=== PATIENT | male | born 1945 | race Caucasian/White ===

== ENCOUNTER 2019-05-19 08:00 | Inpatient (IN) ==
[2019-05-19] MEDS ORDERED: Aspirin 81 MG TAB.CHEW PO ONE (08:03)
[2019-05-19] MEDS ORDERED: Isovue-370 500 ML BOTTLE IVP ONE ×2 (08:03→13:25)
[2019-05-19 08:51] LABS: Basophils % 0.2 %; Eosinophils # 0.1 K/mcL (0.0-0.6); Eosinophils % 1.8 %; Hematocrit 37.4 % (37.5-50.1); Hemoglobin 11.9 g/dL (12.9-16.9); Immature Granulocytes % 0.5 % (0-4); Lymphocytes # 1.2 K/mcL (0.6-4.6); Lymphocytes % 19.2 %; Mean Corpuscular HGB Conc 31.8 g/dL (31.6-35.5); Mean Corpuscular Hemoglobin 32.1 pg (28.0-33.3); Mean Corpuscular Volume 100.8 fL (83.0-100.0); Mean Platelet Volume 11.1 fL (9.4-12.4); Monocytes # 0.4 K/mcL (0.0-1.3); Monocytes % 6.9 %; Neutrophils # 4.3 K/mcL (1.6-8.9); Platelet Count 179 K/mcL (140-400); Red Blood Count 3.71 M/mcL (4.19-5.50); Segmented Neutrophils % 71.4 %; White Blood Count 6.1 K/mcL (4.3-11.1)
[2019-05-19] MEDS ORDERED: 0.9 % Sodium Chloride 1,000 ML IVC ONE (08:53)
[2019-05-19] MEDS ORDERED: *HR* HYDROmorphone (PF) 1 MG/ML SYRINGE IVP ONE (08:53)
[2019-05-19 09:07] LABS: Albumin 3.2 g/dL (3.5-5.7); Albumin/Globulin Ratio 0.9 (1.1-2.2); Bilirubin,Direct 0.2 mg/dL (0.0-0.2); Bilirubin,Indirect 0.6 mg/dL (0.0-1.0); Bilirubin,Total 0.8 mg/dL (0.3-1.0); Globulin 3.4 g/dL (2.4-3.5); Total Protein 6.6 g/dL (6.4-8.9)
[2019-05-19 09:10] LABS: BUN/Creatinine Ratio 18 (6-26); Blood Urea Nitrogen 14 mg/dL (8-23); Calcium 8.9 mg/dL (8.6-10.3); Carbon Dioxide 28 mEq/L (23-29); Chloride 105 mEq/L (98-107); Glucose 153 mg/dL (70-105); Osmolality,Calculated 292 (280-300); Potassium 3.7 mEq/L (3.5-5.1); Sodium 139 mEq/L (136-145); Troponin I < 0.03 ng/mL (< 0.04); eGFR For African Americans > 60 (> 60); eGFR For Non-African Americans > 60 (> 60)
[2019-05-19] MEDS ORDERED: *HR* FentaNYL (PF) 100 MCG/2 ML VIAL IVP ONE (12:38)
[2019-05-19] MEDS ORDERED: Naloxone 0.4 MG/ML INJ IVP PRN (14:33)
[2019-05-19] MEDS ORDERED: *HR* OxyCODONE Immed Rel 5 MG TABLET PO PRN (14:33)
[2019-05-19] MEDS ORDERED: Ondansetron ODT 4 MG TAB.RAPDIS SL PRN (14:33)
[2019-05-19] MEDS ORDERED: Artificial Tears SOLN 15 ML BOTTLE LEFT EYE PRN (15:27)
[2019-05-19] MEDS ORDERED: VISINE TEARS DROPS 15 ML 1 DROP BOTTLE LEFT EYE PRN (17:30)
[2019-05-19] MEDS: Apixaban 2.5 MG TABLET PO SCH (20:41)
[2019-05-19] MEDS: Baclofen 10 MG TABLET PO SCH (20:41)
[2019-05-20 00:43] LABS: Basophils % 0.2 %; Eosinophils # 0.1 K/mcL (0.0-0.6); Hematocrit 35.5 % (37.5-50.1); Hemoglobin 11.6 g/dL (12.9-16.9); Immature Granulocytes % 0.3 % (0-4); Lymphocytes # 1.3 K/mcL (0.6-4.6); Lymphocytes % 19.3 %; Mean Corpuscular HGB Conc 32.7 g/dL (31.6-35.5); Mean Corpuscular Hemoglobin 32.2 pg (28.0-33.3); Mean Corpuscular Volume 98.6 fL (83.0-100.0); Monocytes # 0.5 K/mcL (0.0-1.3); Monocytes % 7.4 %; Neutrophils # 4.6 K/mcL (1.6-8.9); Platelet Count 173 K/mcL (140-400); Red Cell Distribution Width 15.1 % (11.5-14.5); Segmented Neutrophils % 70.8 %; White Blood Count 6.5 K/mcL (4.3-11.1)
[2019-05-20 00:55] LABS: BUN/Creatinine Ratio 18 (6-26); Blood Urea Nitrogen 13 mg/dL (8-23); Calcium 8.8 mg/dL (8.6-10.3); Carbon Dioxide 31 mEq/L (23-29); Chloride 105 mEq/L (98-107); Glucose 106 mg/dL (70-105); Magnesium 1.6 mg/dL (1.6-2.6); Osmolality,Calculated 291 (280-300); Phosphorous 2.7 mg/dL (2.7-4.5); Potassium 3.8 mEq/L (3.5-5.1); Sodium 140 mEq/L (136-145); eGFR For African Americans > 60 (> 60); eGFR For Non-African Americans > 60 (> 60)
[2019-05-20] MEDS: Acetaminophen 325 MG TABLET PO PRN ×2 (04:19→12:49)
[2019-05-20] MEDS: Aspirin 81 MG TAB.CHEW PO SCH (07:41)
[2019-05-20] MEDS: Apixaban 2.5 MG TABLET PO SCH ×2 (07:41→21:09)
[2019-05-20] MEDS: Baclofen 10 MG TABLET PO SCH ×3 (07:41→21:09)
[2019-05-20 12:29] LABS: Bilirubin,Urine Small (Negative); Blood,Urine Negative (Negative); Clarity,Urine Clear (Clear); Color,Urine Yellow (Yellow); Glucose,Urine (UA) Normal (Normal); Ketones,Urine Negative (Negative); Leukocyte Esterase,Urine Negative (Negative); Nitrite,Urine Negative (Negative); Protein,Urine Negative (Neg-Trace); Specific Gravity,Urine > 1.030 (1.010-1.025); Urobilinogen,Urine Normal (Normal)
[2019-05-21 06:13] LABS: Hematocrit 36.9 % (37.5-50.1); Hemoglobin 11.5 g/dL (12.9-16.9); Mean Corpuscular HGB Conc 31.2 g/dL (31.6-35.5); Mean Corpuscular Hemoglobin 32.2 pg (28.0-33.3); Mean Corpuscular Volume 103.4 fL (83.0-100.0); Mean Platelet Volume 11.3 fL (9.4-12.4); Platelet Count 163 K/mcL (140-400); Red Blood Count 3.57 M/mcL (4.19-5.50); Red Cell Distribution Width 15.1 % (11.5-14.5); White Blood Count 6.4 K/mcL (4.3-11.1)
[2019-05-21 06:35] LABS: BUN/Creatinine Ratio 23 (6-26); Blood Urea Nitrogen 19 mg/dL (8-23); Calcium 8.3 mg/dL (8.6-10.3); Carbon Dioxide 30 mEq/L (23-29); Chloride 102 mEq/L (98-107); Glucose 107 mg/dL (70-105); Osmolality,Calculated 295 (280-300); Potassium 4.2 mEq/L (3.5-5.1); Sodium 141 mEq/L (136-145); eGFR For African Americans > 60 (> 60); eGFR For Non-African Americans > 60 (> 60)
[2019-05-21] MEDS: Apixaban 2.5 MG TABLET PO SCH (09:27)
[2019-05-21] MEDS: Aspirin 81 MG TAB.CHEW PO SCH (09:27)
[2019-05-21] MEDS: Baclofen 10 MG TABLET PO SCH (09:27)
[2019-05-21 12:50] VITALS: BP 101/63
== END 2019-05-21 16:19 | DRG 313 ==
LOC: EMEROOARM 08:00 → 3BNU 08:00 → SUATTDRO 14:19 → 3BNU 15:26 → SUATTDRO 05-20 16:32
PROVIDERS: ADMIT Internal Medicine; ATTEND Internal Medicine

== ENCOUNTER 2020-03-29 09:11 | Inpatient (IN) ==
[2020-03-29 09:57] LABS: Basophils % 0.1 %; Hemoglobin 11.5 g/dL (12.9-16.9); Mean Corpuscular Volume 102.2 fL (83.0-100.0); Red Cell Distribution Width 14.5 % (11.5-14.5)
[2020-03-29 09:59] LABS: Hematocrit 37.2 % (37.5-50.1); Immature Granulocytes % 0.6 % (0-4); Immature Platelets 8.7 % (1.1-6.1); Lymphocytes # 0.3 K/mcL (0.6-4.6); Lymphocytes % 3.2 %; Mean Corpuscular HGB Conc 30.9 g/dL (31.6-35.5); Mean Corpuscular Hemoglobin 31.6 pg (28.0-33.3); Mean Platelet Volume 11.6 fL (9.4-12.4); Monocytes # 0.2 K/mcL (0.0-1.3); Monocytes % 2.4 %; Neutrophils # 8.3 K/mcL (1.6-8.9); Nucleated Red Blood Cells 0.2 /100 WBC (0); Platelet Count 120 K/mcL (140-400); Red Blood Count 3.64 M/mcL (4.19-5.50); Segmented Neutrophils % 93.7 %; White Blood Count 8.9 K/mcL (4.3-11.1)
[2020-03-29 10:02] LABS: INR 1.8; Prothrombin Time 20.7 Seconds (9.4-12.1)
[2020-03-29 10:05] LABS: Activated Partial Thrombo Time 35.1 Seconds (26.0-36.0)
[2020-03-29] MEDS ORDERED: 0.9 % Sodium Chloride 1,000 ML ONE (10:22)
[2020-03-29 10:24] LABS: Alanine Aminotransferase 24 Units/L (7-52); Albumin/Globulin Ratio 0.8 (1.1-2.2); Alkaline Phosphatase 79 Units/L (34-104); Aspartate Amino Transferase 41 Units/L (13-39); BUN/Creatinine Ratio 18 (6-26); Bilirubin,Direct 0.5 mg/dL (0.0-0.2); Bilirubin,Indirect 0.6 mg/dL (0.0-1.0); Bilirubin,Total 1.1 mg/dL (0.3-1.0); Blood Urea Nitrogen 19 mg/dL (8-23); C-Reactive Protein > 300 mg/L (Less than 10); Calcium 8.3 mg/dL (8.6-10.3); Carbon Dioxide 35 mEq/L (23-29); Chloride 96 mEq/L (98-107); Globulin 3.8 g/dL (2.4-3.5); Glucose 133 mg/dL (70-105); Lactate Dehydrogenase 262 Units/L (140-271); Magnesium 1.8 mg/dL (1.6-2.6); Osmolality,Calculated 292 (280-300); Phosphorous 2.8 mg/dL (2.7-4.5); Potassium 3.7 mEq/L (3.5-5.1); Sodium 139 mEq/L (136-145); Total Protein 6.8 g/dL (6.4-8.9); Troponin I 0.09 ng/mL (< 0.04); eGFR For African Americans > 60 (> 60); eGFR For Non-African Americans > 60 (> 60)
[2020-03-29 10:40] LABS: Anisocytosis 1+ (Not Present)
[2020-03-29 10:41] LABS: Ferritin 730 ng/mL (20-250); Platelet Estimate Normal (Normal)
[2020-03-29 10:49] LABS: Toxic Granulation Present (Not Present)
[2020-03-29] MEDS ORDERED: Naloxone 0.4 MG/ML INJ IVP PRN (11:45)
[2020-03-29] MEDS ORDERED: Dextrose Gel 15 GM/37.5 ML TUBE PO PRN ×2 (11:50)
[2020-03-29] MEDS ORDERED: *HR* Dextrose 50 % in Water (Vial) 50 ML VIAL IVP PRN (11:50)
[2020-03-29] MEDS ORDERED: D5% in Water 1,000 ML IVC PRN (11:50)
[2020-03-29] MEDS ORDERED: Dexamethasone 4 MG/ML VIAL IVP SCH (12:00)
[2020-03-29] MEDS ORDERED: 0.9 % Sodium Chloride 1,000 ML IVC SCH (12:00)
[2020-03-29] MEDS ORDERED: Albuterol 2.5 MG/3 ML NEBULIZER IH SCH (12:00)
[2020-03-29] MEDS: Vancomycin 1,500 MG/265 ML IV.SOLN IVPB SCH ×2 (12:43→23:30)
[2020-03-29] MEDS: Piperacillin/Tazobactam 3.375 GM in 0.9 % Sodium Chloride Mini Bag 100 ML IVPB SCH ×2 (12:44→20:04)
[2020-03-29 13:41] LABS: Bilirubin,Urine Negative (Negative); Blood,Urine Negative (Negative); Clarity,Urine Clear (Clear); Color,Urine Yellow (Yellow); Glucose,Urine (UA) Normal (Normal); Granular Casts,Urine Few per lpf (None Seen); Hyaline Casts,Urine Many per lpf (None Seen); Ketones,Urine Trace mg/dL (Negative); Leukocyte Esterase,Urine Negative (Negative); Mucus,Urine Few per lpf (None-Few); Nitrite,Urine Negative (Negative); PH,Urine 5.5 pH Units (5.0-8.0); Protein,Urine 50 mg/dL (Neg-Trace); RBC,Urine 0-3 per hpf (0-3); Renal Epithelial Cells,Urine Few per hpf (None-Few); Specific Gravity,Urine 1.018 (1.010-1.025); Squamous Epithelial Cell,Urine Few per hpf (None-Few); Transitional Epi Cells,Urine Few per hpf (None-Few); Urobilinogen,Urine Normal (Normal); WBC,Urine 0-3 per hpf (0-3)
[2020-03-29 14:26] LABS: ABG Base Excess 9 mEq/L (-2 to 3); ABG HCO3 34 mEq/L (21-27); ABG Oxygen Saturation 86 % (95-98); ABG PCO2 49 mmHg (35-45); ABG PH 7.45 pH Units (7.32-7.45); ABG PO2 49 mmHg (85-104); ABG TCO2 36 mEq/L (20-26); Blood Gas Modality avaps
[2020-03-29] MEDS: FentaNYL (PF) 1,000 MCG/100 ML IV.SOLN IVC SCH (15:50)
[2020-03-29] MEDS: Insulin LISPRO 300 UNITS/3 ML VIAL SQ SCH ×3 (16:00→23:33)
[2020-03-29] MEDS ORDERED: Artificial Tears SOLN 15 ML BOTTLE BOTH EYES PRN ×2 (16:24→20:19)
[2020-03-29] MEDS: Midazolam HCl 50 MG/100 ML IV.SOLN IVC SCH (16:39)
[2020-03-29] MEDS: Cisatracurium 200 MG in 0.9 % Sodium Chloride 180 ML IVC SCH (16:39)
[2020-03-29 17:01] LABS: ABG Base Excess 7 mEq/L (-2 to 3); ABG HCO3 30 mEq/L (21-27); ABG Oxygen Saturation 84 % (95-98); ABG PCO2 37 mmHg (35-45); ABG PH 7.52 pH Units (7.32-7.45); ABG PO2 44 mmHg (85-104); ABG TCO2 31 mEq/L (20-26); Blood Gas Modality AF; Blood Gas VT 600 cc
[2020-03-29] MEDS ORDERED: *HR* Midazolam HCl 5 MG/5 ML VIAL IVP ONE (18:00)
[2020-03-29] MEDS ORDERED: *HR* Succinylcholine 200 MG/10 ML VIAL IVP ONE (18:00)
[2020-03-29] MEDS ORDERED: *HR* Midazolam HCl 2 MG/2 ML VIAL IVP ONE (18:00)
[2020-03-29] MEDS ORDERED: *HR* Rocuronium Bromide 100 MG/10 ML VIAL IVP ONE (18:00)
[2020-03-29] MEDS ORDERED: *HR* Propofol 200 MG/20 ML VIAL IVP ONE (18:00)
[2020-03-29] MEDS: Pantoprazole 40 MG VIAL IVP SCH (18:38)
[2020-03-29] MEDS: Dexamethasone 4 MG/ML VIAL IVP SCH (18:39)
[2020-03-29] MEDS ORDERED: Norepinephrine 4 MG/254 ML IV.SOLN IVC SCH (19:00)
[2020-03-29] MEDS: Budesonide/Formoterol 160/4.5 1 PUFF INH IH SCH (19:57)
[2020-03-29] MEDS: Artificial Tears SOLN 15 ML BOTTLE BOTH EYES SCH ×2 (20:04→23:31)
[2020-03-29 20:11] LABS: ABG Base Excess 7 mEq/L (-2 to 3); ABG HCO3 29 mEq/L (21-27); ABG Oxygen Saturation 96 % (95-98); ABG PCO2 35 mmHg (35-45); ABG PH 7.54 pH Units (7.32-7.45); ABG PO2 73 mmHg (85-104); ABG TCO2 31 mEq/L (20-26); Blood Gas Modality ASSIST CONTROL; Blood Gas VT 500 cc
[2020-03-29] MEDS: Chlorhexidine Rinse 15 ML MOUTHWASH MM SCH (20:37)
[2020-03-29] MEDS: *HR* Heparin 5,000 UNIT/ML VIAL SQ SCH (20:39)
[2020-03-29] MEDS ORDERED: Chlorhexidine Rinse 15 ML MOUTHWASH MM SCH (21:00)
[2020-03-29 22:19] LABS: ABG Base Excess 4 mEq/L (-2 to 3); ABG HCO3 29 mEq/L (21-27); ABG Oxygen Saturation 95 % (95-98); ABG PCO2 45 mmHg (35-45); ABG PH 7.42 pH Units (7.32-7.45); ABG PO2 75 mmHg (85-104); ABG TCO2 31 mEq/L (20-26); Blood Gas Modality ASSIST CONTROL; Blood Gas VT 450 cc
[2020-03-29] MEDS ORDERED: Vasopressin 40 UNIT in D5% in Water 100 ML IVC SCH (22:45)
[2020-03-29] MEDS: Norepinephrine 8 MG in 0.9 % Sodium Chloride 250 ML IVC SCH (23:01)
[2020-03-30] MEDS ORDERED: 0.9 % Sodium Chloride 250 ML ONE (00:18)
[2020-03-30] MEDS: FentaNYL (PF) 1,000 MCG/100 ML IV.SOLN IVC SCH ×2 (02:13→12:43)
[2020-03-30] MEDS: Cisatracurium 200 MG in 0.9 % Sodium Chloride 180 ML IVC SCH ×2 (02:13→14:20)
[2020-03-30 03:38] LABS: Hematocrit 33.8 % (37.5-50.1); Hemoglobin 10.9 g/dL (12.9-16.9); Lymphocytes # 0.1 K/mcL (0.6-4.6); Mean Corpuscular HGB Conc 32.2 g/dL (31.6-35.5); Mean Corpuscular Hemoglobin 31.8 pg (28.0-33.3); Mean Corpuscular Volume 98.5 fL (83.0-100.0); Nucleated Red Blood Cells 0.3 /100 WBC (0); Platelet Count 101 K/mcL (140-400); Red Blood Count 3.43 M/mcL (4.19-5.50); Red Cell Distribution Width 14.7 % (11.5-14.5); White Blood Count 6.6 K/mcL (4.3-11.1)
[2020-03-30 03:38] LABS: ABG Base Excess 2 mEq/L (-2 to 3); ABG HCO3 27 mEq/L (21-27); ABG Oxygen Saturation 93 % (95-98); ABG PCO2 45 mmHg (35-45); ABG PH 7.39 pH Units (7.32-7.45); ABG PO2 68 mmHg (85-104); ABG TCO2 28 mEq/L (20-26); Blood Gas Modality ASSIST CONTROL; Blood Gas VT 450 cc
[2020-03-30 04:02] LABS: Calcium 7.8 mg/dL (8.6-10.3); Magnesium 1.6 mg/dL (1.6-2.6); Phosphorous 2.4 mg/dL (2.7-4.5); Potassium 3.4 mEq/L (3.5-5.1)
[2020-03-30 04:09] LABS: Troponin I 0.21 ng/mL (< 0.04)
[2020-03-30 04:25] LABS: Monocytes # 0.5 K/mcL (0.0-1.3); Neutrophils # 5.9 K/mcL (1.6-8.9)
[2020-03-30 04:26] LABS: Platelet Estimate Slight Decrease (Normal); Toxic Granulation Present (Not Present)
[2020-03-30] MEDS: *HR* Heparin 5,000 UNIT/ML VIAL SQ SCH (05:00)
[2020-03-30] MEDS: Norepinephrine 8 MG in 0.9 % Sodium Chloride 250 ML IVC SCH ×2 (05:00→11:30)
[2020-03-30] MEDS: Insulin LISPRO 300 UNITS/3 ML VIAL SQ SCH ×2 (05:01→12:20)
[2020-03-30] MEDS ORDERED: *HR* Heparin 5,000 UNIT/ML VIAL IVP PRN ×2 (05:08)
[2020-03-30] MEDS ORDERED: *HR* Heparin 5,000 UNIT/ML VIAL IVP ONE (05:08)
[2020-03-30] MEDS ORDERED: Heparin 25,000UNIT/250ML 1/2NS 25,000 UNIT/250 ML IV.SOLN IVC SCH ×2 (05:15→06:15)
[2020-03-30] MEDS: Artificial Tears SOLN 15 ML BOTTLE BOTH EYES SCH ×3 (05:16→11:16)
[2020-03-30 05:51] LABS: Hemoglobin 10.9 g/dL (12.9-16.9); INR 1.9; Immature Platelets 14.3 % (1.1-6.1); Mean Corpuscular HGB Conc 32.1 g/dL (31.6-35.5); Mean Corpuscular Hemoglobin 31.5 pg (28.0-33.3); Mean Corpuscular Volume 98.3 fL (83.0-100.0); Prothrombin Time 21.7 Seconds (9.4-12.1); Red Blood Count 3.46 M/mcL (4.19-5.50); Red Cell Distribution Width 14.6 % (11.5-14.5); White Blood Count 8.6 K/mcL (4.3-11.1)
[2020-03-30 05:54] LABS: Activated Partial Thrombo Time 34.4 Seconds (26.0-36.0); Heparin anti-factor XA UFH 1.02 IU/mL (0.30-0.70)
[2020-03-30 07:36] LABS: Acinetobacter baumannii by PCR Not Detected (Not Detect); Candida albicans by PCR Not Detected (Not Detect); Candida glabrata by PCR Not Detected (Not Detect); Candida krusei by PCR Not Detected (Not Detect); Candida parapsilosis by PCR Not Detected (Not Detect); Candida tropicalis by PCR Not Detected (Not Detect); Enterobacter cloacae Cmplx PCR Not Detected (Not Detect); Enterobacteriaceae by PCR Not Detected (Not Detect); Enterococcus by PCR Not Detected (Not Detect); Escherichia coli by PCR Not Detected (Not Detect); Klebsiella oxytoca by PCR Not Detected (Not Detect); Klebsiella pneumoniae by PCR Not Detected (Not Detect); Proteus by PCR Not Detected (Not Detect); Pseudomonas aeruginosa by PCR Not Detected (Not Detect); Serratia marcescens by PCR Not Detected (Not Detect); Staphylococcus aureus by PCR Not Detected (Not Detect); Staphylococcus by PCR DETECTED (Not Detect); Streptococcus agalactiae(B)PCR Not Detected (Not Detect); Streptococcus by PCR Not Detected (Not Detect); Streptococcus pneumoniae PCR Not Detected (Not Detect); Streptococcus pyogenes (A) PCR Not Detected (Not Detect); blaKPC Carbapenem-Resist Gene Not Detected (Not Detect); mecA Methicillin-Resist Gene DETECTED (Not Detect); vanA/B Vancomycin-Resist Genes Not Detected (Not Detect)
[2020-03-30] MEDS: Dexamethasone 4 MG/ML VIAL IVP SCH (07:48)
[2020-03-30] MEDS: Chlorhexidine Rinse 15 ML MOUTHWASH MM SCH (07:48)
[2020-03-30] MEDS: Pantoprazole 40 MG VIAL IVP SCH (07:48)
[2020-03-30] MEDS: Budesonide/Formoterol 160/4.5 1 PUFF INH IH SCH (07:53)
[2020-03-30] MEDS ORDERED: Piperacillin/Tazobactam 3.375 GM in 0.9 % Sodium Chloride Mini Bag 100 ML IVPB SCH (08:00)
[2020-03-30 08:36] LABS: Albumin 2.8 g/dL (3.5-5.7); Albumin/Globulin Ratio 0.8 (1.1-2.2); Bilirubin,Direct 0.8 mg/dL (0.0-0.2); Bilirubin,Indirect 0.6 mg/dL (0.0-1.0); Bilirubin,Total 1.4 mg/dL (0.3-1.0); Globulin 3.4 g/dL (2.4-3.5); Total Protein 6.2 g/dL (6.4-8.9)
[2020-03-30] MEDS ORDERED: Potassium Phosphate 44 MEQ in 0.9 % Sodium Chloride 250 ML IVPB PRN (09:36)
[2020-03-30] MEDS ORDERED: Calcium Gluconate 1gm/50mL 1 GM/50 ML BAG IVPB PRN (09:36)
[2020-03-30] MEDS ORDERED: Potassium Chloride 40 MEQ/200 ML BAG IVPB PRN (09:36)
[2020-03-30] MEDS: Midazolam HCl 50 MG/100 ML IV.SOLN IVC SCH (10:06)
[2020-03-30 11:53] LABS: ABG Base Excess 0 mEq/L (-2 to 3); ABG HCO3 26 mEq/L (21-27); ABG Oxygen Saturation 93 % (95-98); ABG PCO2 46 mmHg (35-45); ABG PH 7.35 pH Units (7.32-7.45); ABG PO2 72 mmHg (85-104); ABG TCO2 27 mEq/L (20-26); Blood Gas Modality ASSIST CONTROL
[2020-03-30 11:57] LABS: VBG Ionized Calcium 0.96 mmol/L (1.15-1.35)
[2020-03-30] MEDS: Phenylephrine 10 MG in 0.9 % Sodium Chloride 250 ML IVC SCH ×2 (12:38→14:49)
[2020-03-30] MEDS ORDERED: Vancomycin 1 EACH in 0.9 % Sodium Chloride 250 ML IVPB PRN (13:00)
[2020-03-30 13:20] LABS: ABG Base Excess -4 mEq/L (-2 to 3); ABG HCO3 23 mEq/L (21-27); ABG Oxygen Saturation 85 % (95-98); ABG PCO2 48 mmHg (35-45); ABG PH 7.29 pH Units (7.32-7.45); ABG PO2 57 mmHg (85-104); ABG TCO2 24 mEq/L (20-26); Blood Gas Modality ASSIST CONTROL; Blood Gas VT 450 cc
[2020-03-30 14:40] VITALS: BP 103/61
[2020-03-30 15:11] LABS: Calcium 7.5 mg/dL (8.6-10.3); Potassium 5.4 mEq/L (3.5-5.1); Troponin I 0.45 ng/mL (< 0.04)
== END 2020-03-30 15:57 | disposition expired | DRG 871 ==
LOC: 2NENU 09:11 → EMEROOARM 09:11 → 2NENU 14:42
PROVIDERS: ADMIT Internal Medicine; ATTEND Internal Medicine